=== PATIENT | male | born 1965 | race African-American/Black ===

== ENCOUNTER 2019-04-19 00:08 | Emergency (ER) | payer SELFPAY ==
[~2019-04-19] VITALS: Ht 185.4 cm; Wt 90.7 kg
[2019-04-19] MEDS ORDERED: cloNIDine 0.2mg Tab ORAL ONE (00:15)
--- NOTE | 2019-04-19 00:17 | Emergency Room Report ---
History of Present Illness General Chief Complaint: To Be Triaged Source: Patient Present Illness HPI This is a 54-year-old male with history of high blood pressure. He is brought in by police for medical clearance. He has a history of high blood pressure. He was booked for possession. He also been drinking tonight. He denies any symptoms. No headache. No chest pain. No shortness of breath. Allergies: Coded Allergies: No Known Allergies (Unverified , 04/19/19) Patient History Past Medical History: see triage record, old chart reviewed, HTN Past Surgical History: other Pertinent Family History: none Social History: Reports: alcohol use Immunizations: other Reviewed Nursing Documentation: PMH: Agreed; PSxH: Agreed Review of Systems Eye: Denies: eye pain, blurred vision ENT: Denies: ear pain, nose congestion, throat swelling Respiratory: Denies: cough, shortness of breath Cardiovascular: Denies: chest pain, palpitations Gastrointestinal: Denies: abdominal pain, diarrhea, nausea, vomiting Musculoskeletal: Denies: back pain, joint pain Skin: Denies: rash Neurological: Denies: headache, numbness Endocrine: Denies: increased thirst, increased urine Hematologic/Lymphatic: Denies: easy bruising All Other Systems: negative except mentioned in HPI Physical Exam Vitals with high blood pressure Sp02 EP Interpretation: reviewed, normal General Appearance: well appearing, no apparent distress, alert Head: normocephalic, atraumatic Eyes: bilateral eye PERRL, bilateral eye EOMI ENT: hearing grossly normal, normal pharynx Neck: full range of motion, supple, no meningismus Respiratory: chest non-tender, lungs clear, normal breath sounds Cardiovascular #1: regular rate, rhythm, no murmur Gastrointestinal: normal bowel sounds, non tender, no mass, no organomegaly, no bruit, non-distended Musculoskeletal: back normal, gait/station normal, normal range of motion Psychiatric: mood/affect normal Medical Decision Making Diagnostic Impression: Primary Impression: Hypertension Qualified Codes: I10 - Essential (primary) hypertension ER Course Castellanos with hypertension. He has no complaint. No symptoms. Will discharge to police. Status: improved Disposition: D/C TO LAW ENFORCEMENT IN [facility]UST Condition: Stable Additional Instructions: Take your blood pressure medication. Follow-up with your doctor in 7 days. Return if worse. Umair Menjivar MD Apr 19, 2019 00:17
[2019-04-19 00:25] VITALS: BP 178/104
--- NOTE | 2019-04-19 00:25 | NUR ---
ED Nurse Note: PT BROUGHT IN BY PD FOR MEDICAL CLEARANCE FOR ELEVATED B/P, TP HAS B/P OF 178/102, PT SEEN BY MD, MEDS GIVEN, AND MD WANTS PT DISCHARGED, PT D/C WITH OFFICER IN CUSTODY, PT IS AWAKE AND VERY LETHARGIC LIKE, DOES RESPOND TO VERBAL STIMULI BUT VERY DROWSY, OFICER SIGNED D/C FORMS.
== END 2019-04-19 00:30 ==
LOC: EMR 00:23
DX: I10 Essential (primary) hypertension (principal)
CPT/HCPCS: 99282